=== PATIENT | female | born 1935 | race Caucasian/White ===

== ENCOUNTER 2024-08-04 08:05 | Day surgery (SDC) | payer OTHER ==
[2024-08-04] MEDS: Ringers Lactate 1,000 ML IV ONE (08:30)
--- NOTE | 2024-08-04 09:12 | RAD REPORT ---
Procedure: Chest Pa And Lat (2 Views) HISTORY: Preop for hernia repair COMPARISON: 2019 FINDINGS: The lungs appear clear of acute infiltrate. No significant pleural effusion noted. The heart is normal size. IMPRESSION: No acute abnormality is displayed.
[2024-08-04 09:25] LABS: Absolute Eosinophils 0.1 K/uL (0-0.5); Absolute Lymphocytes (CBC) 1.3 K/uL (0.7-4.9); Absolute Monocytes 0.3 K/uL (0.1-1.3); Absolute Neutrophil 1.5 K/uL (1.8-8.0); Basophils % 0.5 % (0-1.3); Eosinophils % 1.6 % (0-4.4); Hematocrit 29.9 % (36.0-45.0); Hemoglobin 10.2 g/dL (12.0-15.0); Lymphocytes % 41.5 % (15.3-44.8); MCH 32.6 pg (27.0-35.0); MPV 9.3 fL (7.6-11.3); Monocytes % 8.6 % (3.3-12.3); Neutrophils % 47.8 % (41.7-73.7); Platelets 123 thou/uL (152-406); RBC Red Blood Cell Count 3.12 M/uL (3.86-4.86)
[2024-08-04] MEDS ORDERED: propofoL 200 MG/20 ML VIAL IV ONE (09:39)
[2024-08-04] MEDS ORDERED: ONDANSETRON 4 MG/2 ML VIAL ONE (09:39)
[2024-08-04] MEDS ORDERED: LIDOCAINE 2% MPF 5 ML VIAL ONE (09:39)
[2024-08-04] MEDS ORDERED: ROCURONIUM 50 MG/5 ML VIAL IV ONE (09:39)
[2024-08-04] MEDS ORDERED: FENTANYL CITR 100 MCG/2 ML ONE (09:39)
[2024-08-04] MEDS ORDERED: SUGAMMADEX SODIUM 200 MG/2 ML VIAL IV ONE (09:44)
[2024-08-04] MEDS ORDERED: propofoL 1,000 MG/100 ML VIAL IV ONE (10:13)
[2024-08-04] MEDS ORDERED: dexAMETHasone 10 MG/ML VIAL ONE (11:09)
[2024-08-04] MEDS: CEFAZOLIN SODIUM 1 GM/VIAL ONE (11:13)
[2024-08-04] MEDS ORDERED: GLYCOPYRROLATE 0.2 MG/ML SYR ONE (11:26)
[2024-08-04] MEDS ORDERED: Mastisol Adhesive Liq ONE (11:38)
--- NOTE | 2024-08-04 11:42 | P.BOP ---
Preoperative diagnosis: incarcerated umbilical hernia Postoperative diagnosis: same Primary procedure: Laparoscopic repair of incarcerated umbilical hernia with mesh Estimated blood loss: <10cc Specimen: sac and content Findings: as above, incarcerated omemtum Anesthesia: General Complications: None Transferred to: Recovery Room Condition: Good
[2024-08-04 12:00] VITALS: O2SAT 100
[2024-08-04 14:11] VITALS: BP 148/84; TEMP 97
--- NOTE | 2024-08-05 12:15 | EKG ---
Test Date: 2024-08-04 Test Time: 09:45:36 Laboratory Equipment Cleaner: RADHA MEASUREMENT RESULTS: Intervals: Rate: 76 OK: 182 QRSD: 76 QT: 360 QTc: 405 [place]: P: 66 OK: 182 QRS: 1 T: 45 INTERPRETIVE STATEMENTS: Normal sinus rhythm Low voltage QRS Borderline ECG Compared to ECG 03/03/2003 14:27:00 Low QRS voltage now present Electronically Signed On 08-05-24 12:12:38 SENIOR QC TECHNICIAN by Casey Aguilar
--- NOTE | 2024-08-05 14:13 | OP ---
Date of Procedure: 08/04/2024 Surgeon: Vinh Zhou MD Preoperative Diagnosis: Incarcerated umbilical hernia. Postoperative Diagnosis: Incarcerated umbilical hernia. Procedure: Laparoscopic repair of incarcerated umbilical hernia with mesh. Anesthesia: General plus local. Complications: None. Estimated Blood Loss: Less than 10 cc. Implant: Medium Ventralex mesh. Indications: This is a case of an 89-year-old patient who comes to us with periumbilical tenderness. She had some lump there before, but in last few days it became very tender, especially after sneezi ng, diagnosed with incarcerated umbilical hernia. We offered her laparoscopic possible open repair o f incarcerated umbilical hernia with mesh with benefits, alternatives, and risks including, but not l imited to, infection, bleeding, damage to adjacent structures, anesthesia complication, recurrence, M I, and even . She also understands this may not relieve symptoms, she might need more than one surgical intervention. She understood and signed the consent. The case was discussed with the malia sauceda and also Dr. Lund whose is the primary doctor. Procedure In Detail: The patient was brought to the operating room, placed in supine position. Anes thesia was done without complication. Abdominal area was prepped and draped in a sterile fashion. A time-out was called. Local anesthetic was applied, followed by sharp incision of the skin in the in fraumbilical region. Incision was carried down to fascia. We noticed the patient to have an incarce rated hernia, so we held the hernia contents together, opened the hernia sac, we noticed which was in carcerated omentum, that was ligated and the omentum was allowed to reduce back into the abdominal ca vity after fully inspected and made sure there was no bleeding. The fascial edges were cleaned. Her mk sac was removed. The fascial edges looked friable, so I believe she will benefit from the mesh, so at that moment then we placed Vicryl #1 in [id number] fashion multiple times. We put a Hasso n trocar through this opening. Then, we put a camera inside after obtaining pneumoperitoneum. Then, we put trocar 5 mm on the left and right sides of the abdomen under direct visualization. That allo wed me to visualize the midline and then we selected the mesh to overlap the area about 3 to 5 cm, th at will be Ventralex medium. We carefully put the mesh through the trocar, removed the trocar, and chelsea aguilera secured the mesh to the anterior abdominal wall using SorbaFix. The mesh straps were removed. Chelsea kumar ties on the periumbilical region were tied to obtain airproof condition and then with l aparoscopy we continued fixating the mesh to the anterior abdominal wall circumferentially to make sanches re there is can get in between. The area was irrigated. No bleeding. We checked the are a that we removed the omentum with no bleeding at that moment. Then I proceeded to deflate pneumoper itoneum under direct visualization, removed the trocars, closed the subcutaneous tissue with 3-0 shoe repairer helper lester and skin in subcuticular fashion with 3-0 chromic and Steri-Strips on top. Sponge count and inst rument counts were correct. The patient tolerated procedure well. The patient was sent to recovery in stable condition. SRINI/JAMES Voice ID: [id number] Report ID: [id number]
--- NOTE | 2024-08-05 14:24 | DS ---
Date of Discharge: 08/04/2024 Diagnosis: Incarcerated umbilical hernia. Procedure: Laparoscopic repair of incarcerated umbilical hernia with mesh. Condition: Stable. Disposition: Home. Activity: As tolerated. No heavy lifting. Discharge Instructions: Follow up in my office in 1 week. Call for appointment [phone]. Keep area dry for 48 hours, then may shower. Keep Steri-Strip intact. Abdominal binder while out of bed. Medications: We will call and that included Ultracet and Cipro. SRINI/JAMES Voice ID: [id number] Report ID: [id number]
== END 2024-08-04 14:00 | disposition home or self-care (01) ==
LOC: OR 08:05
PROVIDERS: ATTEND Surgery
PROC: 0WUF4JZ Supplement Abdominal Wall with Synthetic Substitute, Percutaneous Endoscopic Approach (ICD-10-PCS; principal; 2024-08-04 11:15)
DX: K42.0 Umbilical hernia with obstruction, without gangrene (principal)
CPT/HCPCS: 93005; 85025; 80048; 36415; 88302; 71046; 49594; L0625; J2704 ×2; J2003; J3010; J1100; J2405; J7120; J0690; A4314